=== PATIENT | female | born 1955 | race Caucasian/White ===

== ENCOUNTER 2021-03-14 10:29 | Inpatient (IN) ==
[2021-03-14 13:55] LABS: Basophils % 0.2 %; Eosinophils % 0.1 %; Hematocrit 46.7 % (35.3-44.9); Hemoglobin 14.8 g/dL (11.5-15.4); Immature Granulocytes % 0.3 % (0-4); Lymphocytes # 1.2 K/mcL (0.6-4.6); Lymphocytes % 13.5 %; Mean Corpuscular HGB Conc 31.7 g/dL (31.6-35.5); Mean Corpuscular Hemoglobin 29.2 pg (28.0-33.3); Mean Corpuscular Volume 92.1 fL (83.0-100.0); Mean Platelet Volume 10.5 fL (9.4-12.4); Monocytes # 0.6 K/mcL (0.0-1.3); Monocytes % 6.6 %; Platelet Count 231 K/mcL (140-400); Red Blood Count 5.07 M/mcL (3.82-4.97); Red Cell Distribution Width 15.1 % (11.5-14.5); Segmented Neutrophils % 79.3 %; White Blood Count 8.9 K/mcL (4.3-11.1)
[2021-03-14 14:06] LABS: Alanine Aminotransferase 39 Units/L (7-52); Albumin 4.3 g/dL (3.5-5.7); Albumin/Globulin Ratio 1.3 (1.1-2.2); Alkaline Phosphatase 123 Units/L (34-104); Amylase 26 Units/L (29-103); Aspartate Amino Transferase 51 Units/L (13-39); BUN/Creatinine Ratio 12 (6-26); Bilirubin,Direct 0.2 mg/dL (0.0-0.2); Bilirubin,Indirect 1.1 mg/dL (0.0-1.0); Bilirubin,Total 1.3 mg/dL (0.3-1.0); Blood Urea Nitrogen 12 mg/dL (8-23); Carbon Dioxide 26 mEq/L (23-29); Chloride 105 mEq/L (98-107); Globulin 3.2 g/dL (2.4-3.5); Glucose 125 mg/dL (70-105); Lipase 27 Units/L (11-82); Osmolality,Calculated 291 (280-300); Potassium 3.7 mEq/L (3.5-5.1); Sodium 140 mEq/L (136-145); Total Protein 7.5 g/dL (6.4-8.9); eGFR For African Americans > 60 (> 60); eGFR For Non-African Americans 57 (> 60)
[2021-03-14 14:46] LABS: Calcium 9.8 mg/dL (8.6-10.3)
[2021-03-14] MEDS ORDERED: Isovue-370 500 ML BOTTLE IVP ONE (15:41)
[2021-03-14] MEDS ORDERED: 0.9 % Sodium Chloride 1,000 ML IV ONE (15:44)
[2021-03-14 16:16] LABS: Bilirubin,Urine Negative (Negative); Blood,Urine Large (Negative); Clarity,Urine Turbid (Clear); Color,Urine Yellow (Yellow); Glucose,Urine (UA) Normal (Normal); Ketones,Urine 10 mg/dL (Negative); Leukocyte Esterase,Urine Moderate (Negative); Mucus,Urine Many per lpf (None-Few); Nitrite,Urine Positive (Negative); Protein,Urine 100 mg/dL (Neg-Trace); RBC,Urine TNTC per hpf (0-3); Specific Gravity,Urine 1.023 (1.010-1.025); Squamous Epithelial Cell,Urine Few per hpf (None-Few); Urobilinogen,Urine Normal (Normal); WBC,Urine TNTC per hpf (0-3)
[2021-03-14 16:42] LABS: INR 2.4; Prothrombin Time 26.8 Seconds (9.4-12.1)
[2021-03-14 16:44] LABS: Activated Partial Thrombo Time 37.4 Seconds (26.0-36.0)
[2021-03-14] MEDS ORDERED: Ondansetron 4 MG/2 ML VIAL IVP ONE (17:01)
[2021-03-14] MEDS ORDERED: cefTRIAXone 1,000 MG in Water for inj. (sterile) 10 ML IVP ONE (17:14)
[2021-03-14] MEDS ORDERED: Prochlorperazine 10 MG/2 ML VIAL IVP ONE (17:23)
[2021-03-14] MEDS ORDERED: Metoclopramide 10 MG/2 ML VIAL IVP ONE (20:11)
[2021-03-14] MEDS ORDERED: Ondansetron 4 MG/2 ML VIAL IVP PRN (22:04)
[2021-03-14] MEDS ORDERED: Acetaminophen 325 MG TABLET PO PRN (22:04)
[2021-03-14] MEDS ORDERED: *HR* Promethazine 25 MG/ML VIAL IM PRN (22:04)
[2021-03-14] MEDS ORDERED: Naloxone 0.4 MG/ML INJ IVP PRN (22:04)
[2021-03-14] MEDS ORDERED: Melatonin 3 MG TABLET PO PRN (22:04)
[2021-03-14] MEDS ORDERED: 0.9 % Sodium Chloride 1,000 ML IVC SCH (22:15)
[2021-03-14] MEDS: 0.9 % Sodium Chloride 1,000 ML IVC SCH (22:37)
[2021-03-14] MEDS ORDERED: Furosemide 20 MG TABLET PO PRN (23:30)
[2021-03-14] MEDS ORDERED: Warfarin perPT PO PRN (23:31)
[2021-03-14] MEDS ORDERED: *HR* OxyCODONE/APAP 5/325 TABLET PO PRN (23:34)
[2021-03-14] MEDS ORDERED: clonazePAM 0.5 MG TABLET PO PRN (23:50)
[2021-03-15] MEDS ORDERED: *HR* Warfarin 5 MG TABLET PO ONE (00:15)
[2021-03-15 05:14] LABS: Basophils % 0.2 %; Hematocrit 35.2 % (35.3-44.9); Hemoglobin 11.1 g/dL (11.5-15.4); Immature Granulocytes % 0.2 % (0-4); Lymphocytes # 1.3 K/mcL (0.6-4.6); Lymphocytes % 32.7 %; Mean Corpuscular HGB Conc 31.5 g/dL (31.6-35.5); Mean Corpuscular Hemoglobin 29.4 pg (28.0-33.3); Mean Corpuscular Volume 93.1 fL (83.0-100.0); Mean Platelet Volume 10.7 fL (9.4-12.4); Monocytes # 0.4 K/mcL (0.0-1.3); Monocytes % 9.6 %; Neutrophils # 2.3 K/mcL (1.6-8.9); Platelet Count 157 K/mcL (140-400); Red Blood Count 3.78 M/mcL (3.82-4.97); Red Cell Distribution Width 15.3 % (11.5-14.5); Segmented Neutrophils % 56.3 %; White Blood Count 4.1 K/mcL (4.3-11.1)
[2021-03-15 05:30] LABS: INR 2.4; Prothrombin Time 27.2 Seconds (9.4-12.1)
[2021-03-15 05:48] LABS: Alanine Aminotransferase 21 Units/L (7-52); Albumin 2.8 g/dL (3.5-5.7); Albumin/Globulin Ratio 1.3 (1.1-2.2); Alkaline Phosphatase 75 Units/L (34-104); Aspartate Amino Transferase 21 Units/L (13-39); BUN/Creatinine Ratio 12 (6-26); Bilirubin,Total 0.8 mg/dL (0.3-1.0); Blood Urea Nitrogen 8 mg/dL (8-23); Calcium 8.2 mg/dL (8.6-10.3); Carbon Dioxide 25 mEq/L (23-29); Chloride 110 mEq/L (98-107); Globulin 2.1 g/dL (2.4-3.5); Glucose 79 mg/dL (70-105); Osmolality,Calculated 289 (280-300); Potassium 3.2 mEq/L (3.5-5.1); Sodium 141 mEq/L (136-145); Total Protein 4.9 g/dL (6.4-8.9); eGFR For African Americans > 60 (> 60); eGFR For Non-African Americans > 60 (> 60)
[2021-03-15] MEDS ORDERED: *HR* Heparin 5,000 UNIT/ML VIAL SQ SCH (06:00)
[2021-03-15] MEDS: 0.9 % Sodium Chloride 1,000 ML IVC SCH (08:44)
[2021-03-15] MEDS ORDERED: cefTRIAXone 1,000 MG in Water for inj. (sterile) 10 ML IVP SCH (09:00)
[2021-03-15] MEDS ORDERED: Aspirin Enteric Coated 81 MG Tablet PO SCH (09:00)
[2021-03-15] MEDS ORDERED: *HR* HYDROmorphone PF 0.5 MG/0.5 ML SYRINGE IVP PRN (10:44)
[2021-03-15] MEDS ORDERED: Lidocaine -MPF 2% 2 ML VIAL ONE ×3 (12:06→12:36)
[2021-03-15] MEDS ORDERED: Lidocaine -MPF 4% 5 ML AMPUL ONE (12:06)
[2021-03-15] MEDS ORDERED: *HR* Rocuronium Bromide 50 MG/5 ML VIAL ONE (12:06)
[2021-03-15] MEDS ORDERED: *HR* Propofol 200 MG/20 ML VIAL IVP ONE (12:06)
[2021-03-15] MEDS ORDERED: Ondansetron 4 MG/2 ML VIAL ONE (12:06)
[2021-03-15] MEDS ORDERED: *HR* Midazolam HCl 2 MG/2 ML VIAL ONE (12:06)
[2021-03-15] MEDS ORDERED: *HR* FentaNYL (PF) 100 MCG/2 ML VIAL ONE (12:06)
[2021-03-15] MEDS ORDERED: Isovue-300 50ML VIAL ONE (12:18)
[2021-03-15] MEDS ORDERED: *HR* Succinylcholine 200 MG/10 ML VIAL IVP ONE (12:38)
[2021-03-15] MEDS ORDERED: Warfarin perPT PO PRN (14:09)
[2021-03-15] MEDS ORDERED: Melatonin 3 MG TABLET PO PRN (14:09)
[2021-03-15] MEDS ORDERED: 0.9 % Sodium Chloride 1,000 ML IVC SCH (14:09)
[2021-03-15] MEDS ORDERED: Naloxone 0.4 MG/ML INJ IVP PRN (14:09)
[2021-03-15] MEDS ORDERED: *HR* Promethazine 25 MG/ML VIAL IM PRN (14:09)
[2021-03-15] MEDS ORDERED: Ondansetron 4 MG/2 ML VIAL IVP PRN (14:09)
[2021-03-15] MEDS ORDERED: *HR* OxyCODONE/APAP 5/325 TABLET PO PRN (14:09)
[2021-03-15] MEDS ORDERED: Acetaminophen 325 MG TABLET PO PRN (14:09)
[2021-03-15] MEDS ORDERED: Furosemide 20 MG TABLET PO PRN (14:09)
[2021-03-15] MEDS ORDERED: clonazePAM 0.5 MG TABLET PO PRN (14:09)
[2021-03-15] MEDS ORDERED: *HR* Warfarin 1 MG TABLET PO ONE ×2 (18:00)
[2021-03-16 06:32] LABS: Hematocrit 37.2 % (35.3-44.9); Hemoglobin 11.8 g/dL (11.5-15.4); Mean Corpuscular HGB Conc 31.7 g/dL (31.6-35.5); Mean Corpuscular Hemoglobin 29.5 pg (28.0-33.3); Platelet Count 175 K/mcL (140-400); White Blood Count 5.9 K/mcL (4.3-11.1)
[2021-03-16 06:48] LABS: INR 2.6; Prothrombin Time 29.1 Seconds (9.4-12.1)
[2021-03-16 06:55] LABS: Alanine Aminotransferase 16 Units/L (7-52); Albumin/Globulin Ratio 1.4 (1.1-2.2); Alkaline Phosphatase 74 Units/L (34-104); Aspartate Amino Transferase 16 Units/L (13-39); BUN/Creatinine Ratio 9 (6-26); Bilirubin,Total 0.5 mg/dL (0.3-1.0); Blood Urea Nitrogen 6 mg/dL (8-23); Calcium 8.5 mg/dL (8.6-10.3); Carbon Dioxide 25 mEq/L (23-29); Chloride 112 mEq/L (98-107); Globulin 2.2 g/dL (2.4-3.5); Glucose 119 mg/dL (70-105); Osmolality,Calculated 293 (280-300); Potassium 3.9 mEq/L (3.5-5.1); Sodium 142 mEq/L (136-145); Total Protein 5.2 g/dL (6.4-8.9); eGFR For African Americans > 60 (> 60); eGFR For Non-African Americans > 60 (> 60)
[2021-03-16] MEDS ORDERED: Aspirin Enteric Coated 81 MG Tablet PO SCH (09:00)
[2021-03-16] MEDS ORDERED: cefTRIAXone 1,000 MG in Water for inj. (sterile) 10 ML IVP SCH (09:00)
[2021-03-16 12:25] VITALS: PULSE 85; TEMP 98.2; O2SAT 98
[2021-03-16 13:33] VITALS: BP 127/83
[2021-03-16] MEDS ORDERED: *HR* Warfarin 2.5 MG TABLET PO ONE (18:00)
== END 2021-03-16 16:32 | disposition home or self-care (01) | DRG 690 ==
LOC: EMEROOARM 10:29 → CDU 10:29 → SUATTDRO 20:44 → CDU 21:45 → 3BNU 03-16 06:35
PROVIDERS: ADMIT Family Medicine; ATTEND Registered Nurse